=== PATIENT | male | born 1990 | race Caucasian/White ===

== ENCOUNTER 2018-12-09 19:45 | Emergency (ER) | payer OTHER ==
[~2018-12-09] VITALS: Ht 172.7 cm; Wt 87.1 kg
== END 2018-12-09 21:32 | disposition home or self-care (01) ==
LOC: ED 19:45
PROC: 0HQ1XZZ Repair Face Skin, External Approach (ICD-10-PCS; principal; 2018-12-09)
DX: S01.412A Laceration without foreign body of left cheek and temporomandibular area, initial encounter (principal); W31.1XXA Contact with metalworking machines, initial encounter; Z23 Encounter for immunization
CPT/HCPCS: 12011; 73560; 90471; 90715; 99283-25